=== PATIENT | female | born 1980 | race Caucasian/White ===

== ENCOUNTER 2023-04-23 21:35 | Emergency (ER) | payer BC ==
[~2023-04-23] VITALS: Ht 177.8 cm; Wt 100.0 kg
[2023-04-24 01:34] LABS: URINE HCG NEGATIVE (NEG)
[2023-04-24 01:35] LABS: BASOPHILS # (AUTO) 0.1 X10'3 (0-0.2); BASOPHILS % (AUTO) 0.8 % (0-1); EOSINOPHILS # (AUTO) 0.2 X10'3 (0-0.9); EOSINOPHILS % (AUTO) 2.5 % (0-6); HEMATOCRIT 37.6 % (35.0-45.0); HEMOGLOBIN 12.7 g/dl (12.0-16.0); LYMPHOCYTES # (AUTO) 2.2 X10'3 (1.1-4.8); LYMPHOCYTES % (AUTO) 32.7 % (21-51); MEAN CORPUSCULAR HEMOGLOBIN 30.4 PG (27.0-31.0); MEAN CORPUSCULAR HGB CONC 33.7 g/dL (33.0-36.5); MEAN CORPUSCULAR VOLUME 90.2 FL (78-98); MEAN PLATELET VOLUME 11.2 FL (7.4-10.4); MONOCYTES # (AUTO) 0.6 X10'3 (0-0.9); MONOCYTES % (AUTO) 8.4 % (2-12); NEUTROPHILS # (AUTO) 3.8 X10'3 (1.8-7.7); NEUTROPHILS % (AUTO) 55.6 % (42-75); RED BLOOD COUNT 4.17 X10'6 (4.20-5.60); RED CELL DISTRIBUTION WIDTH 13.7 % (11.5-14.5); WHITE BLOOD COUNT 6.8 X10'3 (4.5-11.0)
[2023-04-24 01:36] LABS: BILIRUBIN,URINE NEGATIVE (Neg); CLARITY,URINE SLIGHTLY CLOUDY (Clear); COLOR,URINE YELLOW (Yellow); GLUCOSE, URINE 100 mg/dl (Neg); KETONES,URINE NEGATIVE (Neg); LEUKOCYTE ESTERASE ,URINE NEGATIVE (Neg); NITRITES, URINE NEGATIVE (Neg); OCCULT BLOOD,URINE LARGE (Neg); PH,URINE 5.5 (4.8-8.0); PROTEIN,URINE NEGATIVE (Neg); UA COLLECTION TYPE CLN CATCH MIDSTREAM; UROBILINOGEN,URINE 0.2 E.U/dL (0.2-1.0)
[2023-04-24 01:43] LABS: BACTERIA,URINE NONE SEEN /HPF (Neg); RBC,URINE 50-100 /HPF (0-2); WBC,URINE 0-4 /HPF (0-4)
[2023-04-24 01:44] LABS: MUCUS STRANDS FEW /LPF (Neg); SQUAMOUS EPITHELIAL CELL,UR FEW /LPF (FEW)
[2023-04-24 01:59] LABS: ALANINE AMINOTRANSFERASE 182 U/L (12-78); ALBUMIN 3.6 G/DL (3.4-5.0); ALBUMIN/GLOBULIN RATIO 0.9 (1.1-1.5); ALKALINE PHOSPHATASE 125 IU/L (46-116); ANION GAP 7 (8-16); ASPARTATE AMINO TRANSFERASE 76 U/L (10-37); BILIRUBIN,TOTAL 0.5 MG/DL (0.1-1.0); BLOOD UREA NITROGEN 8 MG/DL (7-18); BUN/CREATININE RATIO 11.6 (10.0-20.0); CALCIUM 8.8 MG/DL (8.5-10.1); CHLORIDE 106 MMOL/L (99-107); CREATININE 0.69 MG/DL (0.40-0.90); GLUCOSE 109 MG/DL (70-104); POTASSIUM 3.8 MMOL/L (3.5-5.1); SODIUM 140 MMOL/L (135-145); TOTAL CARBON DIOXIDE 26.9 MMOL/L (24-32); TOTAL PROTEIN 7.5 G/DL (6.4-8.2); eCRCL 116 ML/MIN; eGFR > 90 ML/MIN
[2023-04-24 02:14] LABS: PLATELET COUNT 5 X10'3 (140-440)
[2023-04-24] MEDS ORDERED: diphenhydrAMINE 50 mg/ml inj IV ONE (04:20)
[2023-04-24] MEDS ORDERED: acetaminophen 325mg tablet PO ONE (04:20)
[2023-04-24] MEDS ORDERED: pantoprazole 40 MG vial IV ONE (04:25)
[2023-04-24] MEDS ORDERED: fentaNYL/PF 50MCG/1 ML 2ML syringe IV ONE (04:25)
[2023-04-24] MEDS ORDERED: ondansetron/PF 4mg/2ml inj IV ONE (04:25)
[2023-04-24] MEDS ORDERED: pantoprazole 40MG/NS 100ML BAG 100 ML IV ONE (04:40)
[2023-04-24] MEDS ORDERED: predniSONE 20 mg tablet PO ONE (04:55)
--- NOTE | 2023-04-24 05:40 | NUR ---
BLOOD CULTURE DRAW @ [id number] 2ND SET BC DRAW @[id number]
--- NOTE | 2023-04-24 06:14 | NUR ---
US AT BEDSIDE
[2023-04-24 06:24] LABS: CREATINE KINASE 36 U/L (26-192); LIPASE 93 U/L (73-393); MAGNESIUM 2.1 MG/DL (1.5-2.4)
[2023-04-24 06:49] LABS: CREATINE KINASE MB < 0.5 ng/ml (0.3-3.6)
[2023-04-24 06:51] LABS: PLATELET COUNT 5 X10'3 (140-440)
[2023-04-24 07:03] LABS: APTT 26 SECONDS (22-32); D-DIMER 0.43 MG/L FEU (0-0.50); FIBRINOGEN 299 MG/DL (177-424); PROTHROMBIN TIME 9.9 SECONDS (9.0-12.0)
[2023-04-24 07:06] LABS: INR 0.9 INR
[2023-04-24 07:07] VITALS: BP 136/89; PULSE 65; RESP 16; TEMP 97.5
[2023-04-24 07:30] VITALS: BP 123/93; PULSE 69; RESP 16; TEMP 97.9
[2023-04-24 08:14] VITALS: BP 123/80; PULSE 72; RESP 16; TEMP 97.9; O2SAT 97
== END 2023-04-24 09:44 | disposition short-term general hospital (02) ==
LOC: ER 21:38
DX: N93.9 Abnormal uterine and vaginal bleeding, unspecified (principal); D69.3 Immune thrombocytopenic purpura; D69.6 Thrombocytopenia, unspecified
CPT/HCPCS: 36415; 36430; 76830; 76856; 80053; 81001; 81025; 82550; 82553; 83605; 83690; 83735; 84145; 84484; 85025; 85379; 85384; 85610; 85730; 86885; 86900; 86901; 87040; 93005; 93976; 96374; 96375; 99285; C9113; J1200; J2405; J7030; J7512; P9035